=== PATIENT | female | born 1940 | race Caucasian/White ===

== ENCOUNTER 2018-04-29 05:57 | Emergency (ER) | payer MEDICARE ==
--- NOTE | 2018-04-29 08:08 | RAD ---
LEFT WRIST THREE VIEWS: History: 78-year-old female with history of left wrist pain and swelling following a trip and fall with associ ated deformity. FINDINGS: Comminuted fractures of the distal radial meta epiphysis and ulnar styloid process are noted with pro minent dorsal angulation and some foreshortening and resultant deformity. Bony demineralization. IMPRESSION: Distal radial and ulnar styloid process fractures, with comminution of the distal radial fracture wit h intraarticular extension with dorsal angulation and resultant deformity. POS: [facility]
[2018-04-29] MEDS ORDERED: Lidocaine 1% PF 5 ML VIAL ONE (08:16)
--- NOTE | 2018-04-29 10:10 | RAD ---
THREE VIEWS LEFT WRIST: DATE: 04/29/2018. TIME: 8:33 a.m. COMPARISON: 04/29/2018 at 5:20 a.m. HISTORY: Evaluate wrist following reduction. FINDINGS: New cast material is present. A comminuted impacted intraarticular fracture of the distal left radiu s is again noted. On the lateral examination, there is mild dorsal displacement and dorsal tilt of t he distal left radial fracture, slightly improved when compared to the prior exam. Ulnar styloid fra cture noted. IMPRESSION: Fracture deformities of the distal left radius and ulna as detailed above. There is mild residual do rsal angulation and dorsal displacement of the distal radial fracture fragment on the lateral view. POS: [facility]
== END 2018-04-29 10:15 | disposition home or self-care (01) ==
LOC: ERS 05:57
DX: S52.512A Displaced fracture of left radial styloid process, initial encounter for closed fracture (principal); S52.612A Displaced fracture of left ulna styloid process, initial encounter for closed fracture; I10 Essential (primary) hypertension; F17.210 Nicotine dependence, cigarettes, uncomplicated; Z79.899 Other long term (current) drug therapy; W01.10XA Fall on same level from slipping, tripping and stumbling with subsequent striking against unspecified object, initial encounter
CPT/HCPCS: 25505; J2001

== ENCOUNTER 2018-05-02 15:25 | Day surgery (SDC) | payer MEDICARE ==
[2018-05-01 16:31] VITALS: BMI 23.8
[2018-05-02] MEDS ORDERED: PHENYLEPHRINE-NS 100 MCG/ML 10 ML SYRINGE ONE (15:39)
[2018-05-02] MEDS ORDERED: Ondansetron HCl/PF 4 MG/2 ML Vial ONE (15:39)
[2018-05-02] MEDS ORDERED: PROPOFOL 200 MG/20 ML VIAL ONE (15:39)
[2018-05-02] MEDS ORDERED: CEFAZOLIN/Water 2 GM/20 ML SYRINGE ONE (15:44)
[2018-05-02] MEDS ORDERED: Fentanyl 100 MCG/2 ML VIAL ONE ×2 (18:19→19:31)
[2018-05-02] MEDS ORDERED: Meperidine HCl/PF 25 MG/ML VIAL ONE (19:23)
[2018-05-02] MEDS ORDERED: HYDROcodone/Acetaminophen 5/325 mg Tablet ONE (20:18)
--- NOTE | 2018-05-02 20:18 | RAD ---
LEFT WRIST TWO VIEWS: 05/02/18 HISTORY: ORIF left wrist. Distal radial and ulnar fractures. Comparison is made with exam of 04/29/18. FINDINGS/IMPRESSION: Two spot fluoroscopic intraoperative images of the left wrist demonstrate interval reduction and inte rnal fixation of the distal radial fracture with plate and screws. Ulnar styloid fracture is again n oted. POS: [facility]
--- NOTE | 2018-05-03 15:37 | OP ---
DATE OF PROCEDURE: 05/02/2018 PREOPERATIVE DIAGNOSIS: Left distal radius fracture, extra-articular. POSTOPERATIVE DIAGNOSIS: Left distal radius fracture, extra-articular. PROCEDURE: Open reduction and internal fixation of left distal radius. ANESTHESIA: General. SURGEON: Gorge Harper M.D. JUICE STANDARDIZER: Tank Cervantes PA-C TOURNIQUET TIME: 33 minutes at 250 mmHg. IMPLANTS: Synthes 2.4 mm variable angle dual column volar plate. COMPLICATIONS: None. DRAINS: None. SPECIMEN: None. OUTCOME: Near anatomic alignment. INDICATIONS: The patient is a pleasant 78-year-old lady status post fall on an outstretched left wri st sustaining a displaced extraarticular distal radius fracture. The patient had approximately 25 de grees of residual dorsal angulation on lateral x-ray with some dorsal comminution and as such, after discussion with patient including risks and benefits, we decided to proceed with open reduction and i nternal fixation. Informed consent has been obtained. I believe all questions have been answered. DESCRIPTION OF PROCEDURE: The patient was brought to the operating room and a timeout performed foll owed by induction of general anesthesia. Next, a sterile prep and drape was performed in the left up per extremity. The limb was then exsanguinated with Esmarch bandage, tourniquet inflated to 250 mmHg . A volar radial skin incision was made in the interval between the flexor carpi radialis and the br achioradialis was exploited with care to identify and reflect the neurovascular bundle radially. Dis section was then carried down to the pronator quadratus which was released off of the radial border o f the distal radius and reflected towards the midline. At this point, the displaced fracture could b e visualized. The hematoma was lavaged from the wound and then the fracture was reduced under direct visualization and held in place with a provisional K-wire. Next, a Synthes 2.4 mm variable angle du al column volar plate was applied to the volar cortex of the distal radius once adjusted under C-arm guidance to the appropriate position. This was held in place with a 2.7 mm cortical screw in the fredy tical limb of the plate. Once done, followup AP, lateral C-arm images were obtained to confirm plate position and then four 2.4 mm locking screws were placed in the horizontal limb of the plate capturi ng the distal fragment. Additional 2.7 mm screws were placed in the vertical limb and then the wound irrigated with bulb syringe. The wound was then closed in layers with 0 Vicryl deep, followed by 2- 0 Vicryl and nylon suture for the skin. A Xeroform gauze, Webril, and fiberglass splint was then suraj lied to the left wrist. The patient was then transferred to recovery room in stable condition. Tour niquet was let down. There were no complications.
== END 2018-05-02 20:50 | disposition home or self-care (01) ==
LOC: SDC 15:25
PROVIDERS: ATTEND Orthopaedic Surgery
PROC: 0PSJ04Z Reposition Left Radius with Internal Fixation Device, Open Approach (ICD-10-PCS; principal; 2018-05-02)
DX: S52.552A Other extraarticular fracture of lower end of left radius, initial encounter for closed fracture (principal); S52.612A Displaced fracture of left ulna styloid process, initial encounter for closed fracture; F17.200 Nicotine dependence, unspecified, uncomplicated; Z79.82 Long term (current) use of aspirin; Z79.899 Other long term (current) drug therapy; W10.9XXA Fall (on) (from) unspecified stairs and steps, initial encounter
CPT/HCPCS: 76001; 96374; C1713; J2175; J2405; J2704; J3010